=== PATIENT | female | born 1995 | race Caucasian/White ===

== ENCOUNTER 2017-04-06 17:30 | Emergency (ER) | payer SELFPAY ==
--- NOTE | 2017-04-06 17:39 | PD ---
Physical Exam Time Seen by Provider: 17:38 Narrative 21yo F c/o R lower tooth pain x 3days. Denies fever, vomiting. Patient seen in triage. VS reviewed. Awaiting bed placement. MDM Supervised Visit with ALISHA: Arianna García Apr 06, 2017 17:39
--- NOTE | 2017-04-06 18:40 | PD ---
HPI . right lower tooth pain x several days Chief Complaint: Oral / Dental Pain or Problem Time Seen by Provider: 18:36 Travel History International Travel<30 days: No Contact w/Intl Traveler<30days: No Traveled to known affect area: No History of Present Illness HPI 21-year-old female here with complaints of right lower tooth pain for several days. Patient tells me that she's had problems with this tooth in the past and had a root canal done. The tooth is chipped and she is wanting it extracted. [place] thought we would be able to take it out in the ED. She denies any fever or chills. PFSH Past Medical History Medical History: Denies Significant Hx Diminished Hearing: No Tetanus Vaccination: < 5 Years Influenza Vaccination: No ?: Not : 0 Past Surgical History Surgical History: No Previous Surgery Social History Alcohol Use: No Tobacco Use: No Substance Use: No Allergies-Medications (Allergen,Severity, Reaction): Coded Allergies: No Known Allergies (Unverified , 04/06/17) Reported Meds & Prescriptions Reported Meds & Active Scripts Active Ibuprofen 800 Mg Tab 800 Mg PO TID Review of Systems General / Constitutional: No: Fever Eyes: No: Visual changes HENT: Positive: Dental Difficulties, No: Headaches Cardiovascular: No: Chest Pain or Discomfort Respiratory: No: Shortness of Breath Gastrointestinal: No: Abdominal Pain Genitourinary: No: Dysuria Musculoskeletal: No: Pain Skin: No Rash Neurologic: No: Weakness Psychiatric: No: Depression Endocrine: No: Polydipsia Hematologic/Lymphatic: No: Easy Bruising Physical Exam Narrative GENERAL: AAO x 3, no acute distress, Well-nourished, well-developed patient. SKIN: Warm and dry. No visible rashes or bruising. HEAD: Normocephalic and atraumatic. EYES: No scleral icterus. No injection or drainage. EOM intact, PERRLA ENT: No nasal drainage noted. Mucous membranes pink. Airway patent. No facial edema.#3. cracked without evidence of fluid collection or infection NECK: Supple, trachea midline. No JVD. no lymphadenopathy. CARDIOVASCULAR: Regular rate and rhythm without murmurs, gallops, or rubs. RESPIRATORY: Breath sounds equal bilaterally. No accessory muscle use. No rhonchi or rales. GASTROINTESTINAL: Visual inspection normal. EXTREMITIES: No cyanosis or edema. BACK: No obvious deformity. No CVA tenderness. NEURO: CN II-12 intact, PSYCH: AAO x 3, normal affect. Data Data Last Documented VS Vital Signs Date Time Temp Pulse Resp B/P Pulse Ox O2 Delivery O2 Flow Rate FiO2 04/06/17 18:53 98.6 86 16 125/78 99 Room Air MDM Medical Decision Making Medical Screen Exam Complete: Yes Emergency Medical Condition: Yes Medical Record Reviewed: Yes Differential Diagnosis Dentalgia, cracked tooth, less likely oral abscess Narrative Course 21 yr old female here with dental pain. She does not have any acute infection or oral abscess. She is here expecting an extraction. I have explained that this is something we cannot do. I recommend outpatient f/u with dentist as soon as possible. I provided her with some ibuprofen for pain relief and inflammation. There is no need for antibiotics I've explained this to her. Patient verbalized understanding of instructions, questions were answered, and thanked me for their care. I advised them if their condition worsens, please return to the nearest emergency room for further care. Diagnosis Primary Impression: Dentalgia Additional Impression: Cracked tooth Referrals: Dentist Patient Instructions: General Instructions Additional Instructions: Please see a dentist as soon as possible to have this tooth extracted. Please return to emergency department if your symptoms return or worsen. Follow up with your primary care provider. Take medications as prescribed. Med/Other Pt SpecificInfo: Prescription(s) given Scripts Ibuprofen 800 Mg [id number] Mg PO TID #21 TAB Prov:Fanny Guzman DO 04/06/17 Disposition: 01 DISCHARGE HOME Condition: Stable Elen Song Apr 06, 2017 18:40
[2017-04-06] MEDS ORDERED: IBUP800T23 PO (18:45)
[2017-04-06 18:53] VITALS: BP 125/78; PULSE 86; RESP 16; TEMP 98.6; O2SAT 99
== END 2017-04-06 19:23 | disposition home or self-care (01) ==
LOC: NEPD 17:30
DX: K03.81 Cracked tooth (principal)
CPT/HCPCS: 99282